=== PATIENT | male | born 1965 | race Caucasian/White ===

== ENCOUNTER 2022-08-10 08:22 | Day surgery (SDC) | payer MEDICAID, SELFPAY ==
--- NOTE | 2022-08-10 07:02 | W.COLOREPORT ---
Colonoscopy Report Date of procedure: 08/10/22 Pre-op diagnosis general: Colon Cancer Screening Post-op diagnosis procedure note: same Procedure: Colonoscopy with polypectomy Surgeon: Mindy Montanez Anesthesia Type: General:No Airway Estimated blood loss (mL): 2 Pathology: other (ascending polyp ?) Complications: None Disposition: same day Indications: The patient? is a pleasant? 56-year-old male who is here to discuss a screening colonoscopy. ? He denies any changes in bowel habits, melena, hematochezia, unintentional weight loss or family history of colon cancer.? The procedure and risks were discussed.? The prep was reviewed in detail.? Risks, benefits and complications have been reviewed. Complications include but are not limited to bleeding, pain, perforation, missed small lesion/polyp, sore throat, aspiration and adverse reaction to the medications. Questions were entertained and answered to their satisfaction and they wished to proceed. No guarantees were given or implied. Prep: Miralax/Dulcolax Procedure Start Time: 10:08 Procedure End Time: 10:31 Retraction Time: 8 minutes Findings: ? one polyp Procedure Description: After informed consent was obtained the patient was taken to the procedure room and placed in a left decubitous position. Monitors were applied and a time out was done. The patients name, date of , procedure, allergies to medications and metal in their body was reviewed. The patient was then sedated. Once sedated and comfortable a rectal exam was done. External exam was normal. Internal exam revealed a normal sphincter tone and no palpable masses. The prostate felt smooth. The scope was then introduced and retro-flexed. No internal hemorrhoids, polyps or masses were identified on retro-flexion. The scope was then advanced to the cecum without difficulty. The ileocecal vlave and appendiceal orifice were identified. The prep was adequate. The scope was then slowly retracted over 8 minutes back into the rectum. Polyps were removed with cold forceps in the ascending colon. There was no diverticulosis noted. The scope was removed and the patient was woken up and taken back to Same day surgery in stable condition. The patient tolerated the procedure well and there were no immediate complications.
--- NOTE | 2022-08-10 07:03 | W.PM.DSUDISC ---
Discharge Plan Disposition Patient Disposition: HOME Condition: Good Discharge Details Reason For Visit: colonoscopy Attending Provider: Mindy Montanez Primary Care Provider: Cody Molina Home Meds and New Rx's Prescriptions: Continued cetirizine 10 mg tablet 10 mg PO DAILY PRN salmeterol 50 mcg/dose blister with device 1 inh inhalation BID epinephrine [EpiPen 2-Mina] 0.3 mg/0.3 mL auto-injector 0.3 mg IM ONCE Rx Instructions: as a single dose ibuprofen 600 mg tablet 600 mg PO QID albuterol sulfate [ProAir HFA] 90 mcg/actuation HFA aerosol inhaler 2 puff inhalation Q6H PRN Dulera 200-5 mcg/actuation HFA aerosol inhaler 2 puff inhalation BID diltiazem HCl [Cartia XT] 240 mg capsule,extended release 24hr 240 mg PO DAILY Qty: 90 3RF lisinopril 5 mg tablet 5 mg PO DAILY Qty: 90 3RF lisinopril-hydrochlorothiazide 20-25 mg tablet 1 tab PO DAILY Qty: 90 3RF simvastatin 20 mg tablet 20 mg PO DAILY Qty: 90 3RF Discontinued bisacodyl [Dulcolax (bisacodyl)] 5 mg tablet,delayed release (DR/EC) 5 mg PO ONCE Qty: 4 0RF Rx Instructions: Take according to provider's instructions for colonoscopy prep. polyethylene glycol 3350 17 gram/dose powder 17 g PO ONCE Qty: 238 0RF Rx Instructions: To be taken as directed by prescriber's office for colonoscopy prep. Discharge Instructions Additional Instructions: Findings: ? one polyp Follow up: depends on if what I removed was a polyp Please call if you develop: fevers >101.5 Nausea or Vomiting Abdominal pain that is not transient Rectal bleeding that is more then a tbsp A hard abdomen and inability to pass gas DAY SURGERY UNIT POST ENDOSCOPY INSTRUCTIONS Instructions for everyone who is given Anesthesia: For your safety, please do the following for the next 24 Hours: a. Do not drive or operate dangerous equipment b. Do not drink alcohol beverages or use any recreational drugs for the first 24 hours or while taking pain medications. The medications in your body may have a reaction that can be dangerous. c. Do not make any important decisions or sign any important papers 1. Generally there are no restrictions on your activity after a day or so has gone by, but you may feel a bit fatigued for a few days. 2. After you arrive home you may have a light meal and return to a normal diet as you can tolerate it without feeling sick to your stomach. 3. After surgery, you may feel pain or discomfort. This should be only transient, but if it persists please contact your doctor. 4. If there are any questions regarding the findings of your procedure, please feel free to contact your doctor. 6. If you are unable to contact your doctor with a problem, contact the hospital at [phone]. 7. Continue all your regular medications unless directed otherwise. I understand the above instructions and have no questions. Signature of Patient or Responsible Adult Escort Date/Time Name of Responsible Adult Escort Signature of Nurse Date/Time Activity:: Activity as Tolerated Diet:: As Tolerated Discharge Orders Discharge Orders: Discharge Order (Routine); Ordered 08/10/22 Ordered By: Mindy Montanez
[2022-08-10 09:00] VITALS: BP 161/101; PULSE 83; RESP 16; TEMP 36.6; O2SAT 97
[2022-08-10] MEDS: Lactated Ringers 1,000 ML 80 ML IV (09:40)
--- NOTE | 2022-08-10 09:50 | W.ANESPRE ---
General Info Date of Service Date Performed: 08/10/22 Height: 5 ft 7 in Weight: 95.3 kg Body Mass Index (BMI): 32.9 Surgical Procedure: Operation Date: 08/10/22 10:20 Proposed Procedure Side Surgeon kristian Montanez MD Meds Allergies and Home Medications Allergies Allergy/AdvReac Type Severity Reaction Status Date / Time NSAIDS (Non-Steroidal AdvReac Intermediate elevated BP Verified 08/10/22 09:05 Anti-Inflamma cat dander AdvReac Unknown eye redness Verified 08/10/22 09:05 dog dander AdvReac Unknown eye redness Verified 08/10/22 09:05 nut - unspecified AdvReac Unknown itching in Verified 08/10/22 09:05 mouth and throat shellfish derived AdvReac Unknown vomit Verified 08/10/22 09:05 strawberry AdvReac Unknown itching in Verified 08/10/22 09:05 mouth and throat Home Medication Medication Instructions Recorded cetirizine 10 mg tablet 10 mg PO DAILY PRN 06/23/21 salmeterol 50 mcg/dose blister 1 inh inhalation BID 06/23/21 powder for inhalation albuterol sulfate 90 mcg/actuation 2 puff inhalation Q6H PRN 07/14/21 aerosol inhaler (ProAir HFA) epinephrine 0.3 mg/0.3 mL 0.3 mg IM ONCE 07/14/21 injection, auto-injector (EpiPen 2-Mina) ibuprofen 600 mg tablet 600 mg PO QID 07/14/21 mometasone-formoterol HFA 200 2 puff inhalation BID 07/19/21 mcg-5 mcg/actuation aerosol inhaler (Dulera) diltiazem HCl 240 mg 240 mg PO DAILY #90 caps 01/21/22 capsule,extended release 24 hr (Cartia XT) lisinopril 20 1 tab PO DAILY #90 tabs 01/21/22 mg-hydrochlorothiazide 25 mg tablet lisinopril 5 mg tablet 5 mg PO DAILY #90 tabs 01/21/22 simvastatin 20 mg tablet 20 mg PO DAILY #90 tabs 01/21/22 bisacodyl 5 mg tablet,delayed 5 mg PO ONCE #4 tabs 07/28/22 release (Dulcolax (bisacodyl)) polyethylene glycol 3350 17 17 g PO ONCE #238 grams 07/28/22 gram/dose oral powder Current Visit Medications: Current Medications Generic Name Dose Route Start Last Admin Trade Name Freq PRN Reason Stop Dose Admin Hyoscyamine Sulfate 0.125 mg 08/10/22 07:04 Hyoscyamine 0.125 Mg Sl/Oral/Chew SL DIRECTED PRN Ringer's Solution 1,000 mls @ 80 mls/hr 08/10/22 06:00 08/10/22 09:40 IV 09/06/22 23:59 80 mls/hr INFUSION FREDDIE Administration IV Miscellaneous Supplies 1 each 08/10/22 06:00 Iv Access IV 09/06/22 23:59 DIRECTED FREDDIE Ondansetron HCl 4 mg 08/10/22 07:04 Ondansetron 4 Mg/2 Ml Vial IVP Q4H PRN PRN Nausea / Vomiting Sodium Chloride 0 ml 08/10/22 06:00 Normal Saline Flush 10 Ml Syr IV 09/06/22 23:59 PRN PRN Sodium Chloride 0 ml 08/10/22 06:00 Normal Saline 10 Ml Vial IJ 09/06/22 23:59 DIRECTED PRN Sterile Water 0 ml 08/10/22 06:00 Water,Injection,Sterile 10 Ml Vial IJ 09/06/22 23:59 DIRECTED PRN PFSH Active Problems Active Problems: Problem Status Onset Code Screening for colon cancer Z12.11 Impotence of organic origin N52.9 GERD (gastroesophageal reflux disease) K21.9 Asthma J45.909 Benign essential hypertension I10 Carpal tunnel syndrome on right G56.01 Obstructive sleep apnea syndrome G47.33 Insomnia G47.00 Obesity E66.9 Pure hypercholesterolemia ~12/07/12 E78.00 Medical History Medical History Comments:: Glass of wine a night. Surgical History Surgical History Hx of tonsillectomy as a child Tobacco Smoking/Tobacco Use Status: Never Passive smoking exposure: Yes Second hand exposure: Yes Alcohol Alcohol Intake: current Alcohol intake frequency: 0-2 drinks per day Alcohol type: wine and hard liquor Substance Use Substance use: Never Substance use type: does not use Vital Signs and Lab Results Vital Signs Most Recent Vital Signs in EMR: Most Recent Vital Signs Temp Pulse Resp BP Pulse Ox 36.6 C 83 16 161/101 H 97 09/19/22 09:00 08/10/22 09:00 08/10/22 09:00 08/10/22 09:00 08/10/22 09:00 Lab Results Blood Type / Crossmatch: No Data to Display Complete Blood Count: No Data to Display Complete Metabolic Panel: No Data to Display Liver Function Panel: No Data to Display Coagulation Panel: No Data to Display Cardiac Panel: No Data to Display Arterial Blood Gas: No Data to Display Venous Blood Gas: No Data to Display Pancreas Panel: No Data to Display Thyroid Panel: No Data to Display Infectious Disease: No Data to Display Blood Cultures: No Data to Display Toxicology Panel: No Data to Display Anesthesia Assessment and Plan Anesthesia History Personal History: No History of Anesthesia Complications Family History: No Family History of Anesthesia Complications Exercise Tolerance Exercise Tolerance: Metabolic Equivalents>4 Pertinent Negatives Pertinent Negatives: No Major Cardiovascular Symptoms or Complaints and No Major Pulmonary Symptoms or Complaints Cardiac & Pulmonary Exam Cardiac Exam: Normal S1/S2 Heart Sounds Pulmonary Exam: Clear Bilateral Breath Sounds Implantable Cardiac Device Does patient have a Pacemaker or an ICD?: No Airway Exam Known Difficult Airway: No Mallampati Class: 2 Mouth Opening: Normal (> 3cm) Thyromental Distance: Greater than 3 cm Neck Range of Motion: Full ROM Neck Circumference: Thick Teeth Condition: Normal Dentition ASA Classification ASA Score: ASA 2 Emergency Case?: No NPO Status NPO Status: NPO Clears >2 hours, Solids >8 hours Anesthesia Plan Resuscitation Status: Full Code Anesthesia Technique: General Anesthesia Airway Planned: Natural Airway Monitors Used: Standard Monitors
[2022-08-10 09:52] VITALS: BMI 32.9
--- NOTE | 2022-08-10 10:18 | BOWEL_PTH ---
PATIENT: Kirk Tucker LOC: [facility] U#:[id number] AGE/SX: 56/M ROOM: RE08/10/[address]: Mindy Montanez MD : [id number] BED: DIS: 08/10/2022 SPEC #: [id number] RECD: 08/10/22 12:27 STATUS: LIBIA REDanielle #: [id number] ERIBERTO: 08/10/22 10:[address]: Mindy Montanez DEPT: Surgical Specimen RECD BY: Stacy Morin ENTERED: 08/10/22 12:27 SP TYPE: Bowel OTHR DR: Cody Molina, BRANT Tissues: 1 - BIOPSY BOWEL Procedures: GROSS AND MICRO LEVEL 4 Comments: [id number]
[2022-08-10 10:38] VITALS: BP 142/96; PULSE 82; RESP 16; TEMP 36.5; O2SAT 98
[2022-08-10 11:00] VITALS: BP 162/89; PULSE 71; RESP 16; TEMP 36.9; O2SAT 97
--- NOTE | 2022-08-10 13:07 | W.ANESPOSTOP ---
Postoperative Evaluation Date, Time and Location Date Performed: 08/10/22 Time Performed: 10:38 Patient Location: Day Surgery Unit Vital Signs Most Recent Imported Vital Signs: Most Recent Vital Signs Temp Pulse Resp BP Pulse Ox 36.9 C 71 16 162/89 H 97 08/10/22 11:00 08/10/22 11:00 08/10/22 11:00 08/10/22 11:00 08/10/22 11:00 Pain Score Most Recent Pain Score: Most Recent Pain Score Pain Level 0 08/10/22 11:00 Assessment Mental Status: Arousable with meaningful communication Airway and Respiratory Function: Patent airway with normal (patient baseline) respiratory exam Cardiovascular Function: Hemodynamically Stable Hydration Status: Adequately Hydrated Nausea & Vomiting: No Nausea or Vomiting Pain: Pt. Denies Any Pain Peripheral Nerve Block: Patient did not receive a nerve block Teaching Patient Teaching: Advised to seek followup for the following concerns (See explanation) Concerns: Other (CRAIG)
== END 2022-08-10 11:24 | disposition home or self-care (01) ==
PROVIDERS: PCP Nurse Practitioner Family; Visit Provider Surgery
PROC: 0DJD8ZZ Inspection of Lower Intestinal Tract, Via Natural or Artificial Opening Endoscopic (ICD-10-PCS; CPT 45378; principal; 2022-08-10 10:15)
DX: Z12.11 Encounter for screening for malignant neoplasm of colon (principal); K63.5 Polyp of colon
CPT/HCPCS: 45380; 88305

== ENCOUNTER 2022-09-16 03:31 | Outpatient (CLI) | payer MEDICAID, SELFPAY ==
[2022-09-16 12:45] LABS: Calculated LDL 73 mg/dL (<100); Cholesterol 146 mg/dL (<200); Estimated GFR 88.88 (mL/min/1.73m2); HDL Cholesterol 44 mg/dL (40-60); Potassium 3.6 mmol/L (3.5-5.1); Triglyceride 145 mg/dL (<150)
[2022-09-16 18:18] LABS: PSA, Screening 0.6 ng/mL (<=3.5)
== END 2022-09-16 03:32 | disposition home or self-care (01) ==
LOC: LOS 03:31
PROVIDERS: PCP Nurse Practitioner Family; Visit Provider Nurse Practitioner Family
DX: E78.00 Pure hypercholesterolemia, unspecified (principal); I10 Essential (primary) hypertension; Z12.5 Encounter for screening for malignant neoplasm of prostate
CPT/HCPCS: 36415; 80061; 84153; 82565; 84132

== ENCOUNTER 2023-02-13 15:20 | Emergency (ER) | payer MEDICAID, SELFPAY ==
[2023-02-13 15:27] VITALS: PULSE 89; RESP 20; TEMP 36.6; O2SAT 98
--- NOTE | 2023-02-13 15:30 | DI.RAD_ITS ---
Exam(s) XR CHEST 2V PA LATERAL EXAM: XR CHEST 2V PA LATERAL CLINICAL HISTORY: Shortness of breath TECHNIQUE: 2D digital imaging was performed. COMPARISON: No exams were available for comparison FINDINGS: HEART: Normal size. Aorta: Not dilated. PULMONARY VASCULATURE: Normal. LUNGS: Clear. PLEURAL SPACE: No pleural effusion or pneumothorax. BONE:Unremarkable for age. IMPRESSION: No acute abnormality. DATA REPOSITORY: RADIATION DOSE DELIVERED:
[2023-02-13 15:35] VITALS: BP 183/106
--- NOTE | 2023-02-13 16:00 | ED.GENADUL_ITS ---
Discharge Plan Disposition Patient Disposition: Home Discharge Details Clinical Impression: Acute thoracic myofascial strain Primary Care Provider: Cody Molina ED Provider: Michele Pérez Home Meds and New Rx's Prescriptions: Continued cetirizine 10 mg tablet 10 mg PO DAILY PRN salmeterol 50 mcg/dose blister with device 1 inh inhalation BID albuterol sulfate [ProAir HFA] 90 mcg/actuation HFA aerosol inhaler 2 puff inhalation Q6H PRN (Reason: asthma) Qty: 8.5 3RF lisinopril 10 mg tablet 10 mg PO DAILY Qty: 90 3RF sildenafil [Viagra] 50 mg tablet 50 mg PO DAILY PRN (Reason: sexual activity) Qty: 5 0RF Rx Instructions: administer 30 minutes to 4 hours before activity epinephrine [EpiPen 2-Mina] 0.3 mg/0.3 mL auto-injector 0.3 mg IM ONCE Rx Instructions: as a single dose ibuprofen 600 mg tablet 600 mg PO QID Dulera 200-5 mcg/actuation HFA aerosol inhaler 2 puff inhalation BID simvastatin 20 mg tablet 20 mg PO DAILY Qty: 90 3RF lisinopril-hydrochlorothiazide 20-25 mg tablet 1 tab PO DAILY Qty: 90 3RF diltiazem HCl [Cartia XT] 240 mg capsule,extended release 24hr 240 mg PO DAILY Qty: 90 3RF Discharge Instructions Instructions: Thoracic Back Strain (ED) Additional Instructions: Continue to hydrate at home with small, frequent sips of fluids. Tylenol and ibuprofen as needed for pain. Remove the Lidoderm patch in 12 hours time. Further patches are available [id number]. Return to the emergency department for any acute concerns. Your work-up in the ER today included chest x-ray, urinalysis and screening blood work including D-dimer. Medical Decision Making This is a 57-year-old male presents with proxy 1 week of left flank pain. He believes began after shoveling snow and prior to recent initiation of CPAP at night. He describes tightness that is worsened with a very deep breath. He has not had a cough or a fever. He notes no changes to urine. He is afebrile and oxygenating normally at the time of arrival. Noted hypertension. Differential diagnosis includes muscular strain, pneumonia, urinary tract infection, must consider/exclude pulmonary embolism. Patient IV access established, screening labs obtained and he is referred for chest x-ray and urinalysis. Chest x-ray without acute findings. Urinalysis unremarkable. White blood cell count is 6, hematocrit 48 and platelets 252. Chemistries no sodium 142, potassium 3.7, chloride 104, bicarb 29. BUN 12 and creatinine 1.0. Noted total bili 1.5 with AST 26 and ALT 55. D-dimer is negative at 229. Discussed with patient that this likely is a muscular strain. No indication to pursue further work-up at this time. He is stable and improving. We will trial Lidoderm patch at home. He will return for any acute concern. HPI General Mode of arrival: ambulatory . Date/Time Provider Initiated Documentation: 02/13/23 15:36 . Limitations to Documentation: no limitations . Information obtained by: patient . History of Present Illness 57 year old M presents to the emergency department with the chief complaint of Left flank pain for 1 week, described as mild and moderate, Quality is described as dull, and is localized to the chest and left. Patient reports no radiation. Patient started experiencing this day(s) and it has been intermittent. No relieving factors improve symptom(s), No exacerbating factors reported . Patient notes other (Left flank pain, worsens with very deep breath); denies cough and shortness of breath. Patient did receive the following treatments prior to arrival, none Related Data Home Medications Medication Instructions Recorded Confirmed cetirizine 10 mg tablet 10 mg PO DAILY PRN 06/23/21 02/13/23 salmeterol 50 mcg/dose blister 1 inh inhalation BID 06/23/21 02/13/23 powder for inhalation epinephrine 0.3 mg/0.3 mL 0.3 mg IM ONCE 07/14/21 02/13/23 injection, auto-injector (EpiPen 2-Mina) ibuprofen 600 mg tablet 600 mg PO QID 07/14/21 02/13/23 mometasone-formoterol HFA 200 2 puff inhalation BID 07/19/21 09/02/22 mcg-5 mcg/actuation aerosol inhaler (Dulera) albuterol sulfate 90 mcg/actuation 2 puff inhalation Q6H PRN asthma 09/02/22 02/13/23 aerosol inhaler (ProAir HFA) #8.5 grams lisinopril 10 mg tablet 10 mg PO DAILY #90 tabs 09/02/22 02/13/23 sildenafil 50 mg tablet (Viagra) 50 mg PO DAILY PRN sexual activity 09/02/22 02/13/23 #5 tabs diltiazem HCl 240 mg 240 mg PO DAILY #90 caps 01/21/23 02/13/23 capsule,extended release 24 hr (Cartia XT) lisinopril 20 1 tab PO DAILY #90 tabs 01/21/23 02/13/23 mg-hydrochlorothiazide 25 mg tablet simvastatin 20 mg tablet 20 mg PO DAILY #90 tabs 01/21/23 02/13/23 Previous Rx's Medication Instructions Recorded albuterol sulfate 90 mcg/actuation 2 puff inhalation Q6H PRN asthma 09/02/22 aerosol inhaler (ProAir HFA) #8.5 grams lisinopril 10 mg tablet 10 mg PO DAILY #90 tabs 09/02/22 sildenafil 50 mg tablet (Viagra) 50 mg PO DAILY PRN sexual activity 09/02/22 #5 tabs diltiazem HCl 240 mg 240 mg PO DAILY #90 caps 01/21/23 capsule,extended release 24 hr (Cartia XT) lisinopril 20 1 tab PO DAILY #90 tabs 01/21/23 mg-hydrochlorothiazide 25 mg tablet simvastatin 20 mg tablet 20 mg PO DAILY #90 tabs 01/21/23 Allergies Allergy/AdvReac Type Severity Reaction Status Date / Time NSAIDS (Non-Steroidal AdvReac Intermediate elevated BP Verified 02/13/23 15:34 Anti-Inflamma cat dander AdvReac Unknown eye redness Verified 02/13/23 15:34 dog dander AdvReac Unknown eye redness Verified 02/13/23 15:34 nut - unspecified AdvReac Unknown itching in Verified 02/13/23 15:34 mouth and throat shellfish derived AdvReac Unknown vomit Verified 02/13/23 15:34 strawberry AdvReac Unknown itching in Verified 02/13/23 15:34 mouth and throat General Stated Complaint: SOB MAE: 3 Review of Systems Narrative: 6 systems reviewed and otherwise negative. PFSH All Active Problems (Updated 02/13/23 @ 17:37 by Michele Pérez MD) Acute thoracic myofascial strain (Acute) Snoring (Acute) Serrated adenoma of colon (Acute) Impotence of organic origin (Acute) GERD (gastroesophageal reflux disease) (Chronic) Asthma (Chronic) Benign essential hypertension (Acute) Carpal tunnel syndrome on right (Acute) Obstructive sleep apnea syndrome (Chronic) Insomnia (Acute) Obesity (Chronic) Pure hypercholesterolemia (Acute ~12/07/12) Surgical History History of colonoscopy (~07/2022) Hx of tonsillectomy as a child Social History Smoking/Tobacco Use Status: Never Second Hand Exposure: Yes Smoking risk assessment performed?: Yes Alcohol Intake: current Alcohol Intake frequency: 0-2 drinks per day Alcohol type: wine and hard liquor Drug use: Never Substance use type: does not use Caregiver/Support person: No Household members: spouse and family Housing: house Communication Needs: None Do you need help understanding health information?: Rarely Pets and animals: Yes Pets and animals: cat(s), dog(s), bird(s), horse(s) and farm animals Sexually active: Yes Do you think of yourself as: straight/heterosexual Current gender identity: male What is your relationship status?: How often do you talk on the phone with friends or family?: once per week How often do you get together with friends or relatives?: once per week How often do you attend oriental orthodox or yarsanism services?: decline to answer Do you belong to any clubs or organized social groups?: no Panel score (0-1 are the most socially isolated patients): 1 What type of physical activity do you participate in: walking and other Details: soccer Duration: 30-45 minutes/day Frequency: 3-4 times per week Larisa/Alevism: No preference Special larisa needs: No Seatbelt use: always Helmet use: Yes Helmet use: always Drive 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 Pleasant, well groomed, interactive. HEAD: Normocephalic, atraumatic ENT: Mucous membranes moist, oropharynx unremarkable, External ear exam unremarkable EYES: PERRL, EOMI NECK: Full ROM, no MYNOR, no menigismus CHEST/RESP: Nontender, clear to auscultation bilateral, no wheeze/rhonchi/rales CARDIOVASCULAR: RRR, no murmur, rub estefania. 2+ Rad pulse bilateral ABDOMEN: Soft, nontender, no mass. +Bowel sounds EXT: Full ROM, no edema, no rash Neuro: Grossly normal neurologic exam, conversant, interactive. Psych: Speech fluent, thoughts congruent, affect normal Course Vital Signs Vital signs: Vital Signs Temperature 36.6 C 02/13/23 15:27 Pulse 89 02/13/23 15:27 Respiratory Rate 20 02/13/23 15:27 Pulse Oximetry 98 02/13/23 15:27 Temperature 36.6 C 02/13/23 15:27 Temperature Source Tympanic 02/13/23 15:27 Pulse 89 02/13/23 15:27 Respiratory Rate 20 02/13/23 15:27 Respiratory Effort Normal, Non-Labored 02/13/23 15:36 Blood Pressure 183/106 H 02/13/23 15:35 Blood Pressure Position Sitting 02/13/23 15:27 Pulse Oximetry 98 02/13/23 15:27 Oxygen Delivery Method Room Air 02/13/23 15:27 Oxygen Flow Rate 0 02/13/23 15:27
[2023-02-13 16:15] VITALS: RESP 18
[2023-02-13 16:38] LABS: Abs Immature Grans 0.02 10^3/uL (0.0-0.06); Absolute Basophil Count 0.04 10^3/uL (0.0-0.2); Absolute Eosinophil Count 0.23 10^3/uL (0.0-0.7); Absolute Lymphocyte Count 1.83 10^3/uL (1.2-3.4); Absolute Monocyte Count 0.83 10^3/uL (0.1-0.8); Absolute Neutrophil Count 3.38 10^3/uL (1.2-6.7); Basophils % 0.6; Eosinophils % 3.6; HCT 48.7 % (40.0-50.0); HGB 17.2 g/dL (13.5-17.5); Immature Grans % 0.3; Lymphocytes % 28.9; MCH 31.7 pg (27.0-33.0); MCHC 35.3 % (32.0-36.0); MCV 90 fL (80-95); MPV 10.8 fL (8.0-11.0); Monocytes % 13.1; Neutrophils % 53.5; Platelet Count 252 10^3/uL (130-400); RBC 5.43 10^6/uL (4.36-5.78); RDW 11.9 % (11.8-14.1); RDW-SD 39.3 fL; WBC 6.33 10^3/uL (4.4-10.8)
[2023-02-13 16:46] LABS: Bilirubin Negative (Negative); Blood Negative (Negative); Clarity Clear (Clear); Glucose Negative (Negative); Ketones Negative (Negative); Leukocyte Esterase Negative (Negative); Nitrite Negative (Negative); Urobilinogen 0.2 mg/dL (Up to 0.2); pH 7.5 (5-8)
--- NOTE | 2023-02-13 16:52 | DI.VRAD_ITS ---
PROCEDURE INFORMATION: Exam: XR Chest Exam date and time: 02/13/2023 4:37 PM Age: 57 years old Clinical indication: Other: SOB; Patient HX: Shortness of breath TECHNIQUE: Imaging protocol: Radiologic exam of the chest. Views: 2 views. COMPARISON: No relevant prior studies available. FINDINGS: Lungs: Unremarkable. No consolidation. Pleural spaces: Unremarkable. No pleural effusion. No pneumothorax. Heart/Mediastinum: Unremarkable. No cardiomegaly. Bones/joints: Unremarkable. IMPRESSION: No acute findings. Dictated and Authenticated by: Todd Bah MD. Ordering:EVELYN Bradley MD
[2023-02-13 16:53] LABS: ALT 55 U/L (16-63); AST 26 U/L (15-37); Albumin 4.5 g/dL (3.4-5.0); Alkaline Phosphatase 63 U/L (46-116); Anion Gap 8.2 mmol/L (3-11); BUN 12 mg/dL (7-18); Bilirubin, Total 1.5 mg/dL (0.2-1.0); CO2 29.8 mmol/L (21.0-32.0); Calcium 9.3 mg/dL (8.5-10.1); Chloride 104 mmol/L (98-107); Estimated GFR 88.33 (mL/min/1.73m2); Glucose 92 mg/dL (74-106); Magnesium 2.2 mg/dL (1.8-2.4); Potassium 3.7 mmol/L (3.5-5.1); Sodium 142 mmol/L (136-145); Total Protein 7.9 g/dL (6.4-8.2)
[2023-02-13 17:26] LABS: D-Dimer 229 ng/mlFEU (<500)
[2023-02-13] MEDS: Lidocaine 5% Patch 1 PATCH TP (18:04)
== END 2023-02-13 18:05 | disposition home or self-care (01) ==
PROVIDERS: Emergency Provider Emergency Medicine; PCP Nurse Practitioner Family
DX: S29.012A Strain of muscle and tendon of back wall of thorax, initial encounter (principal); X58.XXXA Exposure to other specified factors, initial encounter; Y93.H1 Activity, digging, shoveling and raking
CPT/HCPCS: 80053; 99283; 71046; 81003; 83735; 85025; 85379; 99284

== ENCOUNTER 2024-01-29 14:38 | Emergency (ER) | payer MEDICAID, SELFPAY ==
[2024-01-29] VITALS (10 sets, daily range): BP systolic 145–217; BP diastolic 91–136; PULSE 74–94; RESP 16–17; TEMP 36.5–36.8; O2SAT 95–97
--- NOTE | 2024-01-29 15:00 | RT.EKG_ITS ---
APPROVED REPORT Exam: Resting ECG Reason for Exam: chest pain Patient Location: E HR:85 bpm ECG Measurements Heart Rate 85 AXIS RI 155 P 33 QRSd 83 QRS 27 QT 351 T -7 QTc 418 Conclusion Sinus rhythm...normal P axis, V-rate 60- 99 I have reviewed and interpreted ECG and agree with software generated interpretation.
--- NOTE | 2024-01-29 15:00 | DI.RAD_ITS ---
Exam(s) XR PORTABLE CHEST AP EXAM: XR PORTABLE CHEST AP CLINICAL HISTORY: left upper chest pain TECHNIQUE: 2D digital imaging was performed of the chest. Two images were obtained. AP views were obtained. COMPARISON: CR,XR XR CHEST 2V PA LATERAL from 02/13/2023 FINDINGS: MEDIASTINUM: Normal. HEART: Normal. PULMONARY VASCULATURE: Normal. LUNGS: Clear. PLEURAL SPACE: No pleural effusion or pneumothorax. BONE:Within normal limits for the patient's age. OTHER FINDINGS:Normal. IMPRESSION: No acute pulmonary findings. DATA REPOSITORY: RADIATION DOSE DELIVERED:
--- NOTE | 2024-01-29 15:38 | W.ED.GENAD ---
Discharge Plan Disposition Patient Disposition: Home Condition: Good Discharge Details Chief Complaint: Orthopedic Clinical Impression: Muscle twitching Primary Care Provider: Cody Molina ED Provider: Bladimir Britt Home Meds and New Rx's Prescriptions: No Action cetirizine 10 mg tablet 10 mg PO DAILY PRN sildenafil [Viagra] 50 mg tablet 50 mg PO DAILY PRN (Reason: sexual activity) Qty: 5 0RF Rx Instructions: administer 30 minutes to 4 hours before activity Dulera 200-5 mcg/actuation HFA aerosol inhaler 2 puff inhalation BID Qty: 13 3RF epinephrine [EpiPen 2-Mina] 0.3 mg/0.3 mL auto-injector 0.3 mg IM ONCE Rx Instructions: as a single dose ibuprofen 600 mg tablet 600 mg PO QID simvastatin 20 mg tablet 20 mg PO DAILY Qty: 90 3RF diltiazem HCl [Cartia XT] 240 mg capsule,extended release 24hr 240 mg PO DAILY Qty: 90 3RF lisinopril 10 mg tablet 10 mg PO DAILY Qty: 90 3RF albuterol sulfate [ProAir HFA] 90 mcg/actuation HFA aerosol inhaler 2 puff inhalation Q6H PRN (Reason: asthma) Qty: 8.5 3RF lisinopril-hydrochlorothiazide 20-25 mg tablet 1 tab PO DAILY Qty: 90 3RF Discharge Instructions Additional Instructions: At this time your workup is returned very reassuring. No significant abnormalities were noted on your EKG chest x-ray or blood work. Please stay well-hydrated and drink plenty fluids. Please massage and stretch the neck area in the fashion it which we discussed together. If you notice any worsening of your symptoms, or any new symptoms such as vomiting, diarrhea, fever, chills, shortness of breath, chest pain, numbness, weakness, or fainting , please return immediately to the emergency department for reevaluation. Please follow up with your primary care provider as soon as possible for reassessment and reevaluation. As always, it was a pleasure participating in your medical care today. Referrals: Cody Molina, [facility] [Primary Care Provider] - HPI General Date/Time Provider Initiated Documentation: 01/29/24 14:41. HPI Narrative: 58-year-old male with past medical history of GERD, asthma, hypertension, obstructive sleep apnea, high cholesterol, presents today for evaluation of atypical tense sensation in his left neck shoulder and chest region. Patient states that for about the last 6 days he has noticed a very mild subtle sensation of what he feels like is a very minimal muscle contraction underneath the skin in the aforementioned area. It comes on rather quickly and just last for a few seconds and then resolves on its own. He denies any exertional discomfort, any shortness of breath, any vomiting or diarrhea. Any numbness or tingling otherwise. He denies any history of cardiac disease. No other complaints at this time. He was just diagnosed with influenza a few days ago but is improving significantly. No other complaints at this time. No cough or shortness of breath. No other modifying factors. Related Data Home Medications Medication Instructions Recorded Confirmed cetirizine 10 mg tablet 10 mg PO DAILY PRN 06/23/21 01/29/24 epinephrine 0.3 mg/0.3 mL 0.3 mg IM ONCE 07/14/21 01/29/24 injection, auto-injector (EpiPen 2-Mina) ibuprofen 600 mg tablet 600 mg PO QID 07/14/21 01/29/24 sildenafil 50 mg tablet (Viagra) 50 mg PO DAILY PRN sexual activity 09/02/22 01/29/24 #5 tabs diltiazem HCl 240 mg 240 mg PO DAILY #90 caps 01/21/23 01/29/24 capsule,extended release 24 hr (Cartia XT) simvastatin 20 mg tablet 20 mg PO DAILY #90 tabs 01/21/23 01/29/24 lisinopril 10 mg tablet 10 mg PO DAILY #90 tabs 09/23/23 01/29/24 albuterol sulfate 90 mcg/actuation 2 puff inhalation Q6H PRN asthma 10/18/23 01/29/24 aerosol inhaler (ProAir HFA) #8.5 grams mometasone-formoterol HFA 200 2 puff inhalation BID #13 grams 10/20/23 01/29/24 mcg-5 mcg/actuation aerosol inhaler (Dulera) lisinopril 20 1 tab PO DAILY #90 tabs 12/22/23 01/29/24 mg-hydrochlorothiazide 25 mg tablet Previous Rx's Medication Instructions Recorded sildenafil 50 mg tablet (Viagra) 50 mg PO DAILY PRN sexual activity 09/02/22 #5 tabs diltiazem HCl 240 mg 240 mg PO DAILY #90 caps 01/21/23 capsule,extended release 24 hr (Cartia XT) simvastatin 20 mg tablet 20 mg PO DAILY #90 tabs 01/21/23 lisinopril 10 mg tablet 10 mg PO DAILY #90 tabs 09/23/23 albuterol sulfate 90 mcg/actuation 2 puff inhalation Q6H PRN asthma 10/18/23 aerosol inhaler (ProAir HFA) #8.5 grams mometasone-formoterol HFA 200 2 puff inhalation BID #13 grams 10/20/23 mcg-5 mcg/actuation aerosol inhaler (Dulera) lisinopril 20 1 tab PO DAILY #90 tabs 12/22/23 mg-hydrochlorothiazide 25 mg tablet Allergies Allergy/AdvReac Type Severity Reaction Status Date / Time NSAIDS (Non-Steroidal AdvReac Intermediate elevated BP Verified 01/29/24 15:00 Anti-Inflamma cat dander AdvReac Unknown eye redness Verified 01/29/24 15:00 dog dander AdvReac Unknown eye redness Verified 01/29/24 15:00 nut - unspecified AdvReac Unknown itching in Verified 01/29/24 15:00 mouth and throat shellfish derived AdvReac Unknown vomit Verified 01/29/24 15:00 strawberry AdvReac Unknown itching in Verified 01/29/24 15:00 mouth and throat General Stated Complaint: Orthopedic MAE: 3 Review of Systems All systems reviewed & are unremarkable except as noted in HPI and below Exam Narrative Exam Narrative: 1.Const: Well-nourished, Well-developed, appearing stated age 2.Eyes: PERRL, no conjunctival injection, and symmetrical lids. 3.ENT: Atraumatic external nose and ears. Moist MM. Neck: Symmetric, trachea midline, No thyromegaly. 4.CVS: +S1/S2, No murmurs or gallops. Peripheral pulses 2+ and equal in all extremities. Brisk capillary refill in all extremities. 5.RESP: Unlabored respiratory effort. Clear to auscultation bilaterally. No wheezes rales or rhonchi 6.GI: Soft, Nontender/Nondistended, No hepatosplenomegaly. No guarding or rebound. 7.MSK: Normocephalic/Atraumatic, Extremities w/o deformity or ttp No cyanosis or clubbing, Normal movement of all extremities 8.Skin: Warm, Dry. No rashes or lesions. 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 Sensation grossly intact, no focal neurologic deficits. 10.Psych: (AAO) x3. Appropriate mood and affect Course Vital Signs Vital signs: Vital Signs Temperature 36.5 C 01/29/24 14:57 Pulse 94 H 01/29/24 14:57 Respiratory Rate 16 01/29/24 14:57 Blood Pressure 217/136 H 01/29/24 14:57 Pulse Oximetry 97 01/29/24 14:57 Temperature 36.5 C 01/29/24 14:57 Temperature Source Temporal Artery Scan 01/29/24 14:57 Pulse 94 H 01/29/24 14:57 Respiratory Rate 16 01/29/24 14:57 Respiratory Effort Normal, Non-Labored 01/29/24 14:59 Blood Pressure 217/136 H 01/29/24 14:57 Blood Pressure Position Sitting 01/29/24 14:57 Pulse Oximetry 97 01/29/24 14:57 Oxygen Delivery Method Room Air 01/29/24 14:57 Oxygen Flow Rate 0 01/29/24 14:57 Pain Level 2 01/29/24 14:57 Medical Decision Making 58-year-old male with past medical history of GERD, asthma, hypertension, obstructive sleep apnea, high cholesterol, presents today for evaluation of atypical tense sensation in his left neck shoulder and chest region. Patient states that for about the last 6 days he has noticed a very mild subtle sensation of what he feels like is a very minimal muscle contraction underneath the skin in the aforementioned area. It comes on rather quickly and just last for a few seconds and then resolves on its own. He denies any exertional discomfort, any shortness of breath, any vomiting or diarrhea. Any numbness or tingling otherwise. He denies any history of cardiac disease. No other complaints at this time. He was just diagnosed with influenza a few days ago but is improving significantly. No other complaints at this time. No cough or shortness of breath. No other modifying factors. Physical exam demonstrates well-appearing male, no abnormalities or deficits. EKG is normal with no signs of STEMI. Inverted T wave in lead III, no other significant abnormality otherwise. Patient otherwise looks well. I suspect the patient's symptoms are secondary to potential mild dehydration and platysma muscle spasm, however due to his age and risk factors we will get a cardiac evaluation further assessment. Symptoms PE, or dissection. Will monitor closely and reassess. 428. On reassessment patient continues to feel well. He has intermittent spasmodic episodes that area. But otherwise feels very well. Electrolytes are normal, white count normal. No bandemia. Troponin normal, EKG benign, lipase normal. Chest x-ray negative for acute process. Symptoms inconsistent with dissection. No evidence of significant neurologic deficit. Normal sensation. Normal pulses. Normal strength. Patient does have notable spasms for the scalenes and the trapezius muscle, and I suspect this may be a component of of symptoms. No evidence of neurologic deficit or stroke otherwise. No evidence of GA. Patient feels well and feels stable for discharge. Will recommend massage of the muscles for the left neck. Recommend close follow-up with PCP. Discussed red flags for which to return. I have extensively reviewed the treatment plan and discharge instructions with the patient. I have addressed all patient concerns at this time. The patient was made aware of what symptoms to monitor for that would warrant a return to the emergency department. Discussed the plan with the patient, they demonstrate verbal understanding and agreement with our assessment and plan at this time. The documentation in this chart was dictated using [employer] dictation software. Please excuse any dictation errors. FINDINGS: Lungs: Unremarkable. No consolidation. Pleural spaces: Unremarkable. No pleural effusion. No pneumothorax. Heart/Mediastinum: Unremarkable. No cardiomegaly. Bones/joints: Unremarkable. IMPRESSION: No acute findings. Thank you for allowing us to participate in the care of your patient. Dictated and Authenticated by: Darrius Burns MD 01/29/2024 4:12 PM Eastern Time ([place] & [place]) Quality:SDOH Health Related Social Needs: No Data to Display PFSH All Active Problems (Updated 01/29/24 @ 16:33 by Bladimir Britt DO) Muscle twitching (Acute) Snoring (Acute) Serrated adenoma of colon (Acute) Impotence of organic origin (Acute) GERD (gastroesophageal reflux disease) (Chronic) Asthma (Chronic) Benign essential hypertension (Acute) Carpal tunnel syndrome on right (Acute) Obstructive sleep apnea syndrome (Chronic) Insomnia (Acute) Obesity (Chronic) Pure hypercholesterolemia (Acute ~12/07/12) Surgical History History of colonoscopy (~07/2022) Hx of tonsillectomy as a child Social History Smoking/Tobacco Use Status: Never Second Hand Exposure: Yes Smoking risk assessment performed?: Yes Alcohol Intake: current Alcohol Intake frequency: 0-2 drinks per day Alcohol type: wine and hard liquor Drug use: Never Substance use type: does not use Caregiver/Support person: No Household members: spouse and family Housing: house Communication Needs: None Do you need help understanding health information?: Rarely Pets and animals: Yes Pets and animals: cat(s), dog(s), bird(s), horse(s) and farm animals Sexually active: Yes Do you think of yourself as: straight/heterosexual Current gender identity: male What is your relationship status?: How often do you talk on the phone with friends or family?: once per week How often do you get together with friends or relatives?: once per week How often do you attend muslim or mandaen services?: decline to answer Do you belong to any clubs or organized social groups?: no Panel score (0-1 are the most socially isolated patients): 1 What type of physical activity do you participate in: walking and other Details: soccer Duration: 30-45 minutes/day Frequency: 3-4 times per week Larisa/Congregational: No preference Special larisa needs: No Seatbelt use: always Helmet use: Yes Helmet use: always Drive intox 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
[2024-01-29] MEDS: Normal Saline 500 ML IV (15:43)
[2024-01-29 15:47] LABS: Abs Immature Grans 0.01 10^3/uL (0.0-0.06); Absolute Basophil Count 0.04 10^3/uL (0.0-0.2); Absolute Eosinophil Count 0.13 10^3/uL (0.0-0.7); Absolute Lymphocyte Count 0.92 10^3/uL (1.2-3.4); Absolute Monocyte Count 1.04 10^3/uL (0.1-0.8); Absolute Neutrophil Count 2.48 10^3/uL (1.2-6.7); Basophils % 0.9; Eosinophils % 2.8; HCT 47.9 % (40.0-50.0); HGB 16.4 g/dL (13.5-17.5); Immature Grans % 0.2; Lymphocytes % 19.9; MCH 31.1 pg (27.0-33.0); MCHC 34.2 % (32.0-36.0); MCV 91 fL (80-95); MPV 10.4 fL (8.0-11.0); Monocytes % 22.5; Neutrophils % 53.7; Platelet Count 201 10^3/uL (130-400); RBC 5.27 10^6/uL (4.36-5.78); RDW 12.8 % (11.8-14.1); RDW-SD 42.3 fL; WBC 4.62 10^3/uL (4.4-10.8)
[2024-01-29 16:05] LABS: ALT 53 U/L (16-63); AST 29 U/L (15-37); Albumin 4.3 g/dL (3.4-5.0); Alkaline Phosphatase 66 U/L (46-116); Anion Gap 11.1 mmol/L (3-11); BUN 11 mg/dL (7-18); Bilirubin, Total 1.2 mg/dL (0.2-1.0); CO2 29.9 mmol/L (21.0-32.0); CREATININE 1.2 mg/dL (0.70-1.30); Chloride 101 mmol/L (98-107); Estimated GFR 70.53 (mL/min/1.73m2); Glucose 114 mg/dL (74-106); Lipase 40 U/L (16-77); Magnesium 2.4 mg/dL (1.8-2.4); Potassium 3.5 mmol/L (3.5-5.1); Sodium 142 mmol/L (136-145); Total Protein 8.1 g/dL (6.4-8.2); Troponin I < 50 ng/L (< or =60)
--- NOTE | 2024-01-29 16:13 | DI.VRAD_ITS ---
PROCEDURE INFORMATION: Exam: XR Chest Exam date and time: 01/29/2024 3:16 PM Age: 58 years old Clinical indication: Other: Left upper chest pain TECHNIQUE: Imaging protocol: Radiologic exam of the chest. Views: 1 view. COMPARISON: CR XR CHEST 2V PA LATERAL 02/13/2023 4:37 PM FINDINGS: Lungs: Unremarkable. No consolidation. Pleural spaces: Unremarkable. No pleural effusion. No pneumothorax. Heart/Mediastinum: Unremarkable. No cardiomegaly. Bones/joints: Unremarkable. IMPRESSION: No acute findings. Dictated and Authenticated by: Darrius Burns MD. Ordering:WARREN Garrison MD
== END 2024-01-29 16:42 | disposition home or self-care (01) ==
PROVIDERS: Emergency Provider Student in an Organized Health Care Education/Training Program; PCP Nurse Practitioner Family
DX: R25.3 Fasciculation (principal); I10 Essential (primary) hypertension; E78.5 Hyperlipidemia, unspecified
CPT/HCPCS: 80053; 83690; 93005; 96360; 99284; 71045; 83735; 84484; 85025; 93010; 99283

== ENCOUNTER 2024-10-17 02:41 | Outpatient (CLI) | payer OTHER, SELFPAY ==
[2024-10-17 12:48] LABS: CREATININE 1.1 mg/dL (0.70-1.30); Calculated LDL 63 mg/dL (<100); Cholesterol 135 mg/dL (<200); HDL Cholesterol 43 mg/dL (40-60); Potassium 3.3 mmol/L (3.5-5.1); Triglyceride 146 mg/dL (<150)
[2024-10-17 17:57] LABS: PSA, Screening 0.7 ng/mL (<=3.5)
== END 2024-10-17 02:42 | disposition home or self-care (01) ==
LOC: LOS 02:41
PROVIDERS: PCP Nurse Practitioner Family; Visit Provider Nurse Practitioner Family
DX: I10 Essential (primary) hypertension (principal); Z13.1 Encounter for screening for diabetes mellitus; Z13.220 Encounter for screening for lipoid disorders; Z12.5 Encounter for screening for malignant neoplasm of prostate
CPT/HCPCS: 36415; 80061; 84153; 82565; 83036; 84132

== ENCOUNTER 2025-01-19 22:11 | Emergency (ER) | payer OTHER, SELFPAY ==
[2025-01-19] VITALS (9 sets, daily range): BP systolic 167; BP diastolic 89; PULSE 69–87; RESP 16–23; TEMP 35.6; O2SAT 93–96
--- NOTE | 2025-01-19 22:15 | RT.EKG_ITS ---
APPROVED REPORT Exam: Resting ECG Reason for Exam: CHEST PAIN Patient Location: E HR:70 bpm ECG Measurements Heart Rate 70 AXIS LA 150 P 37 QRSd 88 QRS 67 QT 386 T -20 QTc 416 Conclusion Sinus rhythm...normal P axis, V-rate 60- 99 Normal [place]/Intervals NS ST changes, mostly inferior limb leads. There are no significant changes compared to prior EKG performed on 01/29/2024 at 15:09.
--- NOTE | 2025-01-19 22:22 | ED.GENADUL_ITS ---
Discharge Plan Disposition Patient Disposition: Home Condition: Good Discharge Details Clinical Impression: Acute diarrhea, Acute dehydration, Syncope Primary Care Provider: Cody Molina ED Provider: Watson Jacome Home Meds and New Rx's Prescriptions: Continued cetirizine 10 mg tablet 10 mg PO DAILY PRN lisinopril 20 mg tablet 20 mg PO DAILY Qty: 90 3RF meloxicam 15 mg tablet 15 mg PO DAILY Qty: 90 3RF sildenafil [Viagra] 50 mg tablet 50 mg PO DAILY PRN (Reason: sexual activity) Qty: 5 0RF Rx Instructions: administer 30 minutes to 4 hours before activity Dulera 200-5 mcg/actuation HFA aerosol inhaler 2 puff inhalation BID Qty: 13 3RF epinephrine [EpiPen 2-Mina] 0.3 mg/0.3 mL auto-injector 0.3 mg IM ONCE Rx Instructions: as a single dose lisinopril-hydrochlorothiazide 20-25 mg tablet 1 tab PO DAILY Qty: 90 3RF diltiazem HCl [Cartia XT] 240 mg capsule,extended release 24hr 240 mg PO DAILY Qty: 90 3RF albuterol sulfate [ProAir HFA] 90 mcg/actuation HFA aerosol inhaler 2 puff inhalation Q6H PRN (Reason: asthma) Qty: 8.5 3RF simvastatin 20 mg tablet 20 mg PO DAILY Qty: 90 3RF Discharge Instructions Instructions: Diarrhea, Adult ED, Dehydration, Adult ED, Fainting, Adult ED Additional Instructions: You were seen for acute diarrheal illness and syncope which is likely related to dehydration given your laboratory studies. You have received IV hydration here and should continue oral rehydration at home with fluids like Pedialyte, Gatorade, Powerade. Follow-up with primary care early next week for recheck. Return to ED for fever, worsening/persistent abdominal pain, bloody diarrhea, other concerns. Referrals: Cody Molina, [facility] [Primary Care Provider] - HPI <Watson Jacome MD - Last Filed: 01/20/25 01:46> General Mode of arrival: ambulatory . Date/Time Provider Initiated Documentation: 01/19/25 22:20 . Limitations to Documentation: no limitations . Information obtained by: patient, RN notes reviewed and old records reviewed . HPI Narrative: Patient presents to ED after syncopal event at home. Patient developed acute diarrhea this afternoon with abdominal cramping. He has had no nausea or vomiting. At this point he states that he is just passing water instead of stool. It is not bloody. He has had no fever. He has no travel outside of the [place]. He has not been on antibiotics recently. He is not in healthcare. He states that he got up to go to the bathroom. Started to feel weak in the knees and the next thing he knew he was on the floor very sweaty, weak, cold. Was able to get up and wake his up and was brought here. Denies any type of chest pain or pressure. Denies any head or neck pain. Denies any shortness of breath. Has not had any URI type symptoms. Related Data Home Medications ?Medication ?Instructions ?Recorded ?Confirmed cetirizine 10 mg tablet 10 mg PO DAILY PRN 06/23/21 01/19/25 epinephrine 0.3 mg/0.3 mL 0.3 mg IM ONCE 07/14/21 01/19/25 injection, auto-injector (EpiPen 2-Mina) sildenafil 50 mg tablet (Viagra) 50 mg PO DAILY PRN sexual activity 09/02/22 01/19/25 #5 tabs mometasone-formoterol HFA 200 2 puff inhalation BID #13 grams 10/20/23 01/19/25 mcg-5 mcg/actuation aerosol inhaler (Dulera) lisinopril 20 1 tab PO DAILY #90 tabs 12/22/23 01/19/25 mg-hydrochlorothiazide 25 mg tablet diltiazem HCl 240 mg 240 mg PO DAILY #90 caps 02/04/24 01/19/25 capsule,extended release 24 hr (Cartia XT) albuterol sulfate 90 mcg/actuation 2 puff inhalation Q6H PRN asthma 03/06/24 01/19/25 aerosol inhaler (ProAir HFA) #8.5 grams simvastatin 20 mg tablet 20 mg PO DAILY #90 tabs 03/06/24 01/19/25 lisinopril 20 mg tablet 20 mg PO DAILY #90 tabs 10/12/24 01/19/25 meloxicam 15 mg tablet 15 mg PO DAILY #90 tabs 10/12/24 01/19/25 Previous Rx's ?Medication ?Instructions ?Recorded sildenafil 50 mg tablet (Viagra) 50 mg PO DAILY PRN sexual activity 09/02/22 #5 tabs mometasone-formoterol HFA 200 2 puff inhalation BID #13 grams 10/20/23 mcg-5 mcg/actuation aerosol inhaler (Dulera) lisinopril 20 1 tab PO DAILY #90 tabs 12/22/23 mg-hydrochlorothiazide 25 mg tablet diltiazem HCl 240 mg 240 mg PO DAILY #90 caps 02/04/24 capsule,extended release 24 hr (Cartia XT) albuterol sulfate 90 mcg/actuation 2 puff inhalation Q6H PRN asthma 03/06/24 aerosol inhaler (ProAir HFA) #8.5 grams simvastatin 20 mg tablet 20 mg PO DAILY #90 tabs 03/06/24 lisinopril 20 mg tablet 20 mg PO DAILY #90 tabs 10/12/24 meloxicam 15 mg tablet 15 mg PO DAILY #90 tabs 10/12/24 Allergies Allergy/AdvReac Type Severity Reaction Status Date / Time NSAIDS (Non-Steroidal AdvReac Intermediate elevated BP Verified 01/19/25 22:21 Anti-Inflamma cat dander AdvReac Unknown eye redness Verified 01/19/25 22:21 dog dander AdvReac Unknown eye redness Verified 01/19/25 22:21 nut - unspecified AdvReac Unknown itching in Verified 01/19/25 22:21 mouth and throat shellfish derived AdvReac Unknown vomit Verified 01/19/25 22:21 strawberry AdvReac Unknown itching in Verified 01/19/25 22:21 mouth and throat General Stated Complaint: Nausea/Vomit/Diar MAE: 3 Exam <Watson Jacome MD - Last Filed: 01/20/25 01:46> Narrative Exam Narrative: Const: WDWN male in NAD. VS per triage. HEENT: NC/AT. Normal facial exam. Neck: Supple. Trachea midline. No midline tenderness. Lungs: Normal respiratory effort. Cor: RRR without murmur. Good radial pulses. GI: Soft/ND/NT. Neuro: A+O x 3. Normal speech, mentation, gait. Cranial nerves II - XII grossly intact. No gross motor or sensory deficit. Ext: No C/C/E. Course <Watson Jacome MD - Last Filed: 01/20/25 01:46> Vital Signs Vital signs: Vital Signs Temperature 96.1 F L 01/19/25 22:15 Pulse 69 01/19/25 22:15 Respiratory Rate 18 01/19/25 22:15 Blood Pressure 167/89 H 01/19/25 22:15 Pulse Oximetry 96 01/19/25 22:15 Temperature 96.1 F L 01/19/25 22:15 Pulse 69 01/19/25 22:15 Respiratory Rate 18 01/19/25 22:15 Blood Pressure 167/89 H 01/19/25 22:15 Pulse Oximetry 96 01/19/25 22:15 Oxygen Delivery Method Room Air 01/19/25 22:15 Oxygen Flow Rate 0 01/19/25 22:15 Procedure <Mary Garces MD - Last Filed: 01/19/25 23:36> EJ/Peripheral IV/Phlebotomy Date of Procedure: 01/19/25 Time of Procedure: 23:36 Indication: Nursing/tech could not get IV Skin Cleansed in Sterile Fashion: Yes Laterality: Right Insertion Site: Antecubital Size & Type: 20 ga. Number ofAttempts(See previous attempts in note section): 1 Dressing: Tegaderm Applied Ultrasound: Used/Image Saved Estimated Blood Loss: minimal Reason for Blood Draw by Provider: RN/lab unable Procedure Tolerated: No Complications and Patient tolerated well Procedure Outcome: Successful Medical Decision Making <Watson Jacome MD - Last Filed: 01/20/25 01:46> Patient presenting to ED with acute diarrheal illness with crampy abdominal pain and resulting syncopal event this evening. He did have warning prior to syncope becoming very weak in the knees. Was getting up to go to the bathroom once again. Suspect combination of some orthostasis and vagal. His EKG here is sinus rhythm with normal axis and intervals, nonspecific ST changes mostly inferiorly which are not significantly different from previous. He had no chest pain or pressure, shortness of breath, neurologic change. His abdomen is benign on exam. Appears to have no risk factors for C. difficile but given that he is only having diarrhea will send specimen to lab. Would expect gastroenteritis/norovirus to have resulting nausea and vomiting which she has not had. He is not having persistent abdominal pain just crampy abdominal pain on and off. I do not think he needs imaging at this time. Laboratory studies have been sent. Will give a liter of LR. He is not tachycardic and mildly hypertensive here. Patient's laboratory studies suggest pretty significant dehydration given his hemoconcentration with a hemoglobin of 18.7 and renal insufficiency with a creatinine of 1.4. Total bilirubin is 1.9 but he has had elevated bilirubins and likely has Gilbert's disease. C. difficile came back negative. Suspect his diltiazem is preventing expected tachycardia. He has received 2 L of LR. Will plan discharge home to continue oral rehydration. Follow-up with PCP early next week if not improving. Return precautions provided. Medical Records Medical records reviewed: Yes I reviewed the patient's medical records. Medical records narrative: last annual wellness visit Lab Data Lab results reviewed: Yes I reviewed the patient's lab results. Lab results narrative: see [facility] ECG Data Attestation: I personally reviewed and interpreted this ECG (s) as follows: Prior ECG tracings: available for review Interpretation: see MDM/EKG [facility] <Watson Jacome MD - Last Filed: 01/20/25 01:46> All Active Problems (Updated 01/20/25 @ 01:43 by Watson Jacome MD) Syncope (Chronic) Acute dehydration (Acute) Acute diarrhea (Acute) Right knee pain (Acute) Snoring (Acute) Serrated adenoma of colon (Acute) Impotence of organic origin (Acute) Carpal tunnel syndrome on right (Acute) Insomnia (Acute) Medical History Asthma Obesity GERD (gastroesophageal reflux disease) Benign essential hypertension Obstructive sleep apnea syndrome Uses CPAP Pure hypercholesterolemia (~12/07/12) Surgical History History of colonoscopy (~07/2022) Hx of tonsillectomy as a child Social History Smoking/Tobacco Use Status: Never Second Hand Exposure: Yes Smoking risk assessment performed?: Yes Alcohol Intake: current Alcohol Intake frequency: 0-2 drinks per day Alcohol type: wine and hard liquor Drug use: Never Substance use type: does not use Adopted: No Caregiver/Support person: No Household members: spouse and children Housing: house Number of Children: 2 Communication Needs: None Education Level: college Do you need help understanding health information?: Never current occupation: personal lines underwriter/teacher Pets and animals: Yes Pets and animals: cat(s), dog(s), bird(s), horse(s) and farm animals Sexually active: Yes Do you think of yourself as: straight/heterosexual Current gender identity: male What is your relationship status?: How often do you talk on the phone with friends or family?: once per week How often do you get together with friends or relatives?: once per week How often do you attend episcopal or temple services?: decline to answer Do you belong to any clubs or organized social groups?: no Panel score (0-1 are the most socially isolated patients): 1 What type of physical activity do you participate in: walking and other Details: yardwork Duration: 30-45 minutes/day Frequency: 3-4 times per week Larisa/Islam: No preference Special larisa needs: No Seatbelt use: always Helmet use: Yes Helmet use: always Drive 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
[2025-01-19 23:04] LABS: Abs Immature Grans 0.04 10^3/uL (0.0-0.06); Absolute Basophil Count 0.04 10^3/uL (0.0-0.2); Absolute Eosinophil Count 0.12 10^3/uL (0.0-0.7); Absolute Lymphocyte Count 1.23 10^3/uL (1.2-3.4); Absolute Monocyte Count 0.85 10^3/uL (0.1-0.8); Basophils % 0.3 %; HCT 54.8 % (40.0-50.0); HGB 18.7 g/dL (13.5-17.5); Immature Grans % 0.3 %; Lymphocytes % 10.3 %; MCH 31.4 pg (27.0-33.0); MCHC 34.1 % (32.0-36.0); MCV 92 fL (80-95); MPV 10.9 fL (8.0-11.0); Monocytes % 7.1 %; Platelet Count 233 10^3/uL (130-400); RBC 5.96 10^6/uL (4.36-5.78); RDW 12.3 % (11.8-14.1); RDW-SD 41.6 fL; WBC 11.92 10^3/uL (4.4-10.8)
[2025-01-19 23:07] LABS: Absolute Neutrophil Count 9.66 10^3/uL (1.2-6.7)
[2025-01-19 23:19] LABS: ALT 62 U/L (16-63); AST 45 U/L (15-37); Albumin 5.3 g/dL (3.4-5.0); Alkaline Phosphatase 81 U/L (46-116); Anion Gap 12.5 mmol/L (3-11); BUN 17 mg/dL (7-18); Bilirubin, Total 1.89 mg/dL (0.2-1.0); CO2 28.5 mmol/L (21.0-32.0); CREATININE 1.4 mg/dL (0.70-1.30); Calcium 10.1 mg/dL (8.5-10.1); Chloride 101 mmol/L (98-107); Estimated GFR 58.26 (mL/min/1.73m2); Glucose 171 mg/dL (74-106); Magnesium 2.4 mg/dL (1.8-2.4); Potassium 3.7 mmol/L (3.5-5.1); Sodium 142 mmol/L (136-145); Total Protein 9.2 g/dL (6.4-8.2)
[2025-01-19] MEDS: Lactated Ringers 1,000 ML 1000 ML IV (23:43)
[2025-01-20] VITALS (15 sets, daily range): BP systolic 165–180; BP diastolic 88–94; PULSE 77–84; RESP 16–23; O2SAT 94–98
[2025-01-20] MEDS: Lactated Ringers 1,000 ML 1000 ML IV (00:30)
[2025-01-20 01:19] LABS: C Diff PCR Negative (Negative)
== END 2025-01-20 01:46 | disposition home or self-care (01) ==
PROVIDERS: Emergency Provider Emergency Medicine; PCP Nurse Practitioner Family
DX: E86.0 Dehydration (principal); R19.7 Diarrhea, unspecified; R55 Syncope and collapse; R10.9 Unspecified abdominal pain
CPT/HCPCS: 36415; 76942; 80053; 87493; 93005; 96360; 96361; 99285; 36410; 83735; 85025; 93010; 99284

== ENCOUNTER 2025-10-09 03:33 | Outpatient (CLI) | payer OTHER, SELFPAY ==
[2025-10-09 14:28] LABS: Hemoglobin A1C 6.4 % (<5.7)
[2025-10-09 15:49] LABS: Anion Gap 12.1 mmol/L (3-11); BUN 13 mg/dL (9-23); CO2 26.9 mmol/L (20.0-31.0); Calcium 8.3 mg/dL (8.3-10.6); Chloride 104 mmol/L (98-107); Cholesterol 136 mg/dL (<200); Glucose 130 mg/dL (74-106); HDL Cholesterol 40 mg/dL (>40); Potassium 3.3 mmol/L (3.5-5.1); Sodium 143 mmol/L (136-145)
== END 2025-10-09 03:34 | disposition home or self-care (01) ==
LOC: LOS 03:34
PROVIDERS: PCP Nurse Practitioner Family; Visit Provider Nurse Practitioner Family
DX: I10 Essential (primary) hypertension (principal); Z13.220 Encounter for screening for lipoid disorders; Z13.1 Encounter for screening for diabetes mellitus
CPT/HCPCS: 36415; 80048; 80061; 83036